=== PATIENT | female | born 1990 | race Caucasian/White ===

== ENCOUNTER 2017-07-18 10:46 | Emergency (ER) | payer OTHER ==
[2017-07-18] MEDS ORDERED: MUPIROCIN 2% OINT 22GM TUBE TOP ONE (11:39)
[2017-07-18] MEDS ORDERED: CLINDAMYCIN HCL 150 MG CAP ONE (11:39)
[2017-07-18] MEDS ORDERED: SMZ./TMP. 800/160 MG TABLET ONE (11:39)
[2017-07-18 11:49] LABS: Urine Blood NEGATIVE (NEG); Urine Glucose NEGATIVE (NEG); Urine Protein NEGATIVE (NEG)
--- NOTE | 2017-07-18 12:04 | ER ---
Nurse's Notes [facility] Name: Feli Bashir Age: 27 yrs Sex: Female : 1990 Arrival Date: 07/18/2017 Time: 10:51 Bed 11 Private MD: Wang Heredia T Diagnosis: Cellulitis of external ear, bilateral Presentation: 07/18 10:53 Presenting complaint: Patient states: " I got my ears pierced on both sides about 3 ph weeks ago and I think they may be infected because my glands on both sides are really swollen." Pt reports pain in rupali era, vomiting x 2 today, denies fever. Transition of care: patient was not received from another setting of care. Onset of symptoms was July 18, 2017. Risk Assessment: Do you want to hurt yourself or someone else? Patient reports no desire to harm self or others. Initial Sepsis Screen: Does the patient meet any 2 criteria? No. Patient's initial sepsis screen is negative. Does the patient have a suspected source of infection? No. Patient's initial sepsis screen is negative. Care prior to arrival: None. 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 - Social history:: Smoking status: Patient/guardian denies using tobacco. - Ebola Screening: : No symptoms or risks identified at this time. Screenin:43 Abuse screen: Denies threats or abuse. Denies injuries from another. Nutritional aj screening: No deficits noted. Tuberculosis screening: No symptoms or risk factors identified. Fall Risk None identified. Assessment: 11:43 General: Appears in no apparent distress. comfortable, Behavior is calm, cooperative, aj appropriate for age. Pain: Complains of pain in right ear and left ear. Neuro: Level of Consciousness is awake, alert, obeys commands, Oriented to person, place, time, situation. Respiratory: Airway is patent Respiratory effort is even, unlabored, Respiratory pattern is regular, symmetrical. EENT: Reports pain in left ear and right ear. Derm: Skin is intact, is healthy with good turgor, Skin is pink, warm \\T\\ dry. normal. Vital Signs: 10:56 BP 145 / 89; Pulse 86; Resp 18; Temp 98.1; Pulse Ox 100% on R/A; Weight 74.84 kg; ph Height 5 ft. 6 in. (167.64 cm); Pain 5/10; 10:56 Body Mass Index 26.63 (74.84 kg, 167.64 cm) ph ED Course: 10:51 Patient arrived in ED. mr 10:51 Wang Heredia MD is Private Physician. mr 10:55 Triage completed. ph 10:57 Arm band placed on. ph 10:58 [facility] Alice[facility]. cp 10:58 David Waldrop MD is Attending Physician. cp 11:26 Marquita Jose RN is Primary Nurse. aj 11:43 Patient has correct armband on for positive identification. aj 12:03 Wang Heredia MD is Referral Physician. cp 12:09 No provider procedures requiring assistance completed. Patient did not have IV access aj during this emergency room visit. Administered Medications: 11:22 CANCELLED (Physician Discretion): Bactrim (160 mg-800 mg (DS) 1 tablet PO once cp 11:41 Drug: Bactrim (160 mg-800 mg (DS) 1 tablet Route: PO; aj 12:10 Follow up: Response: No adverse reaction aj 11:42 Drug: Clindamycin 300 mg Route: PO; aj 12:10 Follow up: Response: No adverse reaction aj 11:42 Drug: Bactroban Ointment 2 % 1 application Route: Topical; Site: affected area; aj Outcome: 12:03 Discharge ordered by . cp 12:09 Discharged to home aj 12:09 Condition: good 12:09 Discharge instructions given to patient, Instructed on discharge instructions, follow up and referral plans. medication usage, Demonstrated understanding of instructions, follow-up care, medications, Prescriptions given X 3. 12:16 Patient left the ED. aj Signatures: Marquita Jose, LYUBOV RN Ban Sim mr Baylee Isabel RN RN Garret Alicea PA PA cp
--- NOTE | 2017-07-18 12:04 | EDPHYS ---
Physician Documentation [facility] Name: Feli Bashir Age: 27 yrs Sex: Female : 1990 Arrival Date: 07/18/2017 Time: 10:51 Bed 11 Private MD: Wang Heredia T ED Physician Palma David HPI: 07/18 11:25 This 27 yrs old Female presents to ER via Ambulatory with complaints of Ear cp Pain. 11:25 The patient presents with pain, that is acute, swelling, tenderness. The complaints cp affect the right ear and left ear. Onset: The symptoms/episode began/occurred this morning. Associated signs and symptoms: Pertinent positives: vomiting, Pertinent negatives: fever, sore throat. Severity of symptoms: in the emergency department the symptoms are unchanged despite home interventions. 11:25 Patient reports having multiple piercings of bilateral ears 3 weeks ago. Redness and cp swelling noticed this morning. 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 - Social history:: Smoking status: Patient/guardian denies using tobacco. - Ebola Screening: : No symptoms or risks identified at this time. ROS: 11:28 Constitutional: Negative for body aches, chills, fever, poor PO intake. cp 11:28 Eyes: Negative for injury, pain, redness, and discharge. cp 11:28 ENT: Positive for ear pain, Negative for drainage from ear(s), sore throat, difficulty swallowing, difficulty handling secretions. 11:28 Respiratory: Negative for cough, shortness of breath, wheezing. 11:28 Abdomen/GI: Positive for vomiting, Negative for nausea, diarrhea, constipation. 11:28 Neuro: Negative for altered mental status, headache, weakness. 11:28 All other systems are negative. Exam: 11:33 Constitutional: The patient appears in no acute distress, alert, awake, non-toxic, well cp developed, well nourished. 11:33 Head/Face: Normocephalic, atraumatic. cp 11:33 Eyes: Periorbital structures: appear normal, Conjunctiva: normal, no exudate, no injection, Lids and lashes: appear normal, bilaterally. 11:33 ENT: External ear(s): cellulitis, that is moderate, of the bilateral external ears with right worse than left, pain with movement, that is moderate, bilaterally, Ear canal(s): are normal, clear, TM's: dullness, bilaterally, Nose: is normal, Posterior pharynx: is normal, airway is patent, no erythema, no exudate. 11:33 Neck: ROM/movement: is normal, is supple, without pain, no range of motions limitations, no nuchal rigidity, Lymph nodes: lymphadenopathy is appreciated, post auricular nodes. 11:33 Chest/axilla: Inspection: normal, Palpation: is normal, no crepitus, no tenderness. 11:33 Cardiovascular: Rate: normal, Rhythm: regular. 11:33 Respiratory: the patient does not display signs of respiratory distress, Respirations: normal, no use of accessory muscles, no retractions, no splinting, no tachypnea, Breath sounds: are clear throughout, no decreased breath sounds, no stridor, no wheezing. 11:33 Abdomen/GI: Exam negative for discomfort, distension, guarding, Inspection: Vital Signs: 10:56 BP 145 / 89; Pulse 86; Resp 18; Temp 98.1; Pulse Ox 100% on R/A; Weight 74.84 kg; ph Height 5 ft. 6 in. (167.64 cm); Pain 5/10; 10:56 Body Mass Index 26.63 (74.84 kg, 167.64 cm) ph MDM: 10:58 Patient medically screened. cp 11:30 Differential diagnosis: otitis media, otitis externa, ruptured TM, cerumen impaction, cp cellulitis, abscess. 12:02 Data reviewed: vital signs, nurses notes, and as a result, I will discharge patient. cp 12:02 ED course: Piercings removed from bilateral ears. Oral antibiotics given. No vomiting cp observed in ED. Will discharge to home for continued monitoring. 07/18 11:42 Order name: Urine Dipstick--Ancillary (enter results); Complete Time: 11:59 bd 07/18 11:42 Order name: Urine --Ancillary (enter results); Complete Time: 11:59 bd 07/18 11:21 Order name: Urine Test (obtain specimen); Complete Time: 11:39 cp 07/18 11:21 Order name: Urine Dipstick-Ancillary (obtain specimen); Complete Time: 11:39 cp Administered Medications: 11:22 CANCELLED (Physician Discretion): Bactrim (160 mg-800 mg (DS) 1 tablet PO once cp 11:41 Drug: Bactrim (160 mg-800 mg (DS) 1 tablet Route: PO; aj 12:10 Follow up: Response: No adverse reaction aj 11:42 Drug: Clindamycin 300 mg Route: PO; aj 12:10 Follow up: Response: No adverse reaction aj 11:42 Drug: Bactroban Ointment 2 % 1 application Route: Topical; Site: affected area; aj Disposition: 07/19 07:41 Co-signature as Attending Physician, David Waldrop MD. Disposition: 07/18/17 12:03 Discharged to Home. Impression: Cellulitis of external ear, bilateral. - Condition is Stable. - Discharge Instructions: Cellulitis. - Prescriptions for Bactroban 2 % Topical Cream - Apply to affected area 1 application by TOPICAL route every 12 hours apply to external ears as directed; 15 gram. Clindamycin HCl 300 mg Oral Capsule - take 1 capsule by ORAL route every 6 hours for 10 days; 40 capsule. Bactrim DS 800- 160 mg Oral Tablet - take 1 tablet by ORAL route every 12 hours for 10 days; 20 tablet. - Medication Reconciliation Form, Thank You Letter, Antibiotic Education, Prescription Opioid Use form. - Follow up: Wang Heredia MD; When: 48 Hours; Reason: Recheck today's complaints. - Problem is new. - Symptoms are unchanged. Signatures: Dispatcher [employer] EDMarquita Clay RN RN aj Hall, Patricia, RN RN ph Page, Corey, PA PA David Bosch MD MD Corrections: (The following items were deleted from the chart) 07/18 11:22 11:21 Bactrim (160 mg-800 mg (DS) 1 tablet PO once ordered. cp cp 12:16 12:03 07/18/2017 12:03 Discharged to Home. Impression: Cellulitis of external ear, aj bilateral. Condition is Stable. Forms are Medication Reconciliation Form, Thank You Letter, Antibiotic Education, Prescription Opioid Use. Follow up: Wang Heredia; When: 48 Hours; Reason: Recheck today's complaints. Problem is new. Symptoms are unchanged. cp
== END 2017-07-18 12:16 | disposition home or self-care (01) ==
LOC: ER 10:46
DX: H60.13 Cellulitis of external ear, bilateral (principal); J45.909 Unspecified asthma, uncomplicated
CPT/HCPCS: 81003; 81025; 99283